=== PATIENT | female | born 1970 | race Caucasian/White ===

== ENCOUNTER 2020-10-02 18:04 | Emergency (ER) | payer MEDICAID ==
[~2020-10-02] VITALS: Ht 160 cm; Wt 54.4 kg
[~2020-10-02 18:04] MED LIST: GLU500
[2020-10-02 18:11] VITALS: BP 101/66
[2020-10-02] MEDS ORDERED: FAMOTIDINE 20 MG TAB PO ONE (18:20)
[2020-10-02] MEDS ORDERED: KETOROLAC 60 MG/2 ML VIAL IM ONE (18:35)
[2020-10-02] MEDS ORDERED: NAPR-1704 PO (18:57)
[2020-10-02] MEDS ORDERED: ACET-8386 PO (18:57)
[2020-10-02 19:10] VITALS: BP 101/66
== END 2020-10-02 19:10 | disposition home or self-care (01) ==
LOC: MED 18:04
DX: R51.9 Headache, unspecified (principal); T50.B95A Adverse effect of other viral vaccines, initial encounter; M79.10 Myalgia, unspecified site; E11.9 Type 2 diabetes mellitus without complications; Z79.84 Long term (current) use of oral hypoglycemic drugs; Z79.899 Other long term (current) drug therapy; Z98.890 Other specified postprocedural states; Y92.89 Other specified places as the place of occurrence of the external cause
CPT/HCPCS: 96372; 99283; J1885